=== PATIENT | female | born 1970 | race Caucasian/White ===

== ENCOUNTER 2019-01-27 06:00 | Outpatient (RCR) | payer SELFPAY | END 2019-02-26 00:01 | LOC: SPT 06:00 | PROVIDERS: Family Provider Family Medicine; Visit Provider Specialist | DX: M51.16 Intervertebral disc disorders with radiculopathy, lumbar region (principal) | CPT/HCPCS: 97110 ×4 ==

== ENCOUNTER 2019-02-27 13:17 | Outpatient (RCR) | payer MEDICAID, SELFPAY | END 2019-03-29 23:59 | disposition home or self-care (01) | LOC: SPT 13:17 | PROVIDERS: Family Provider Family Medicine; Visit Provider Specialist | DX: M51.16 Intervertebral disc disorders with radiculopathy, lumbar region (principal) ==

== ENCOUNTER 2021-11-15 10:51 | Outpatient (CLI) | payer MEDICAID, SELFPAY ==
--- NOTE | 2021-11-15 10:53 | MM_ITS ---
WS: [id number] BILATERAL SCREENING DIGITAL TOMOSYNTHESIS MAMMOGRAM WITH CAD HISTORY: SCREENING COMPARISON: 02/06/2019 and 2011 Bilateral CC and MLO views with tomosynthesis and synthetic mammography submitted. Computer aided det ection analyzed. Breast composition: There are scattered areas of fibroglandular density. No suspicious masses, microc alcifications or architectural distortion. MM/[place] [id number] IMPRESSION: BI-RADS: 1-Negative FOLLOW UP: 1 Year Follow-up
== END 2021-11-15 10:52 | disposition home or self-care (01) ==
LOC: RAD 10:52
PROVIDERS: PCP Family Medicine; Visit Provider Nurse Practitioner Family
DX: Z12.31 Encounter for screening mammogram for malignant neoplasm of breast (principal)
CPT/HCPCS: 77063; 77067

== ENCOUNTER 2022-02-25 16:49 | Emergency (ER) | payer MEDICAID, SELFPAY ==
--- NOTE | 2022-02-25 16:53 | ECG_ITS ---
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 Measurements Intervals [place] Rate: 78 P: 29 [place]: 168 QRS: 22 QRSD: 95 T: 34 QT: 374 QTc: 427 Interpretive Statements SINUS RHYTHM INCOMPLETE RIGHT BUNDLE BRANCH BLOCK [90+ ms QRS DURATION, TERMINAL R IN V1/V2, 40+ ms S IN I/aVL/V4/V5/V6] POSSIBLE ANTERIOR MYOCARDIAL INFARCTION , OF INDETERMINATE AGE [30 ms Q WAVE IN V3/V4, OR R < 0.2 mV IN V4] No previous ECG available for comparison Electronically Signed On 02-25-2022 18:48:34 EQUIPMENT COORDINATOR by Julienne Ann M.D. [id number]
[2022-02-25 16:54] VITALS: BP 144/90; PULSE 85; RESP 18; TEMP 36.3; O2SAT 97; BMI 29.6
[2022-02-25 18:00] VITALS: BP 120/78; PULSE 81; RESP 18; TEMP 36.6; O2SAT 96
--- NOTE | 2022-02-25 19:09 | XRR_ITS ---
PROCEDURE INFORMATION: Exam: XR Chest Exam date and time: 02/25/2022 7:11 PM Age: 51 years old Clinical indication: Angina; Patient HX: Irregular hb; Additional info: Cp TECHNIQUE: Imaging protocol: Radiologic exam of the chest. Views: 1 view. COMPARISON: CT kidney stone [id number] 11/15/2018 8:54 PM FINDINGS: Lungs: Unremarkable. No consolidation. Pleural spaces: Unremarkable. No pleural effusion. No pneumothorax. Heart/Mediastinum: Unremarkable. No cardiomegaly. Bones/joints: Unremarkable. XR/XR chest 1V portable [id number] IMPRESSION: Unremarkable
[2022-02-25 20:27] LABS: Basophils % 0.2 %; Eosinophils # 0.1 10^3/uL (0.0-0.8); Eosinophils % 0.8 %; Hematocrit 40.2 % (37.0-47.0); Hemoglobin 13.3 g/dL (11.5-15.3); Lymphocytes # 2.6 10^3/uL (0.8-4.8); Lymphocytes % 43.3 %; Mean Corpuscular HGB Conc 33.1 g/dL (30.0-36.0); Mean Corpuscular Hemoglobin 31.5 pg (28.0-34.0); Mean Corpuscular Volume 95.3 fl (81-99); Mean Platelet Volume 10.3 fL (7.4-10.4); Monocytes # 0.4 10^3/uL (0.2-0.9); Monocytes % 5.9 %; Neutrophils # 2.96 10^3/uL (1.8-7.7); Neutrophils % 49.6 %; Nucleated Red Blood Cells % 0 %; Platelet Count 203 10^3/cmm (130-400); Red Blood Count 4.22 10^6/uL (4.1-5.3); Red Cell Distribution Width 11.9 % (12.1-15.1)
[2022-02-25 20:43] LABS: Troponin(5th) Baseline 6 ng/L (0-10)
[2022-02-25 20:49] LABS: Alanine Aminotransferase 50 U/L (0-33); Albumin Level 4.6 g/dL (3.5-5.2); Alkaline Phosphatase 116 U/L (35-105); Anion Gap 12.9 (5-19); Aspartate Amino Transferase 23 U/L (0-32); Blood Urea Nitrogen 13 mg/dL (6-20); Calcium 10.1 mg/dL (8.5-10.5); Carbon Dioxide 29 mmol/L (22-29); Chloride 104 mmol/L (98-107); Globulin 2.1 g/dL (1.3-4.6); Glomerular Filtration Rate 88.6 mL/min (90-130); Glucose 94 mg/dL (65-115); Osmolality Calculated 294 mOsm/kg (285-295); Potassium 3.9 mmol/L (3.5-5.1); Sodium 142 mmol/L (136-145); Total Bilirubin 0.3 mg/dL (0.15-1.2); Total Protein 6.7 g/dL (6.6-8.7)
--- NOTE | 2022-02-25 22:05 | ECG_ITS ---
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 Measurements Intervals [place] Rate: 74 P: 14 UT: 164 QRS: -5 QRSD: 98 T: -10 QT: 393 QTc: 436 Interpretive Statements SINUS RHYTHM INCOMPLETE RIGHT BUNDLE BRANCH BLOCK [90+ ms QRS DURATION, TERMINAL R IN V1/V2, 40+ ms S IN I/aVL/V4/V5/V6] POSSIBLE ANTERIOR MYOCARDIAL INFARCTION , OF INDETERMINATE AGE [30 ms Q WAVE IN V3/V4, OR R < 0.2 mV IN V4] Compared to ECG 02/25/2022 17:09:13 No significant changes Electronically Signed On 02-26-2022 15:23:59 IT SENIOR SOFTWARE ENGINEER JAVA by Paulina Garcia M.D. [id number]
--- NOTE | 2022-02-25 22:48 | W.ED.ARRPALP ---
HPI - Arrhythmia/Palpitations General: Chief Complaint: Arrhythmia/Palpitations Stated Complaint: chest pain Time Seen by Provider: 02/25/22 22:32 History of Present Illness: Patient comes in with palpitations. States that she had some chest pain back around Thanksgiving a couple months ago and since then has been had off-and-on palpitations. States she is not having any symptoms at this time. Denies any significant medical history. Physical exam is unremarkable. EKG, and labs done here in the emergency department are unremarkable. Will place a request to case management to help patient get set up with a cardiac event monitor and send the results to her primary care provider. Associated symptoms: Deny anxiety, nausea or vomiting Review of Systems Const: Denies: fever(s) or body aches Eyes: Denies: change in vision or blurry vision ENMT: Denies: throat pain or odynophagia Card: Reports: palpitations; Denies: chest pain Resp: Denies: dyspnea or productive cough GI: Denies: abdominal pain, nausea or vomiting : Denies: flank pain or dysuria Musc: Denies: neck pain or back pain Skin/Breast: Denies: rash or pruritus Neuro: Denies: headache(s) or numbness in extremities Psych: Denies: anxiety or change in appetite Endo: Denies: polyuria or excessive sweating PFSH ED PFSH: Medical History (Updated 02/25/22 @ 22:48 by Scottie Prater MD) Intervertebral disc disorder with radiculopathy of lumbar region Spondylolisthesis of lumbar region Family History (Updated 04/03/19 @ 10:24 by Mere Holland LPN) Mother CAD (coronary artery disease) Diabetes Hypertension Social History (Updated 04/03/19 @ 10:25 by Mere Holland LPN) Smoking and tobacco status: never smoked Alcohol intake: current Lives independently: Yes Marital status: Current occupational status: employed 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 Physical Exam Const: COMMON NORMALS: no acute distress, patient oriented x3, healthy appearing and alert HENMT: COMMON NORMALS: normocephalic and atraumatic HEAD & SCALP: normocephalic and atraumatic Eye: COMMON NORMALS: Equal, round and reactive pupils present and EOMs intact bilaterally PUPIL: Yes Equal, round and reactive pupils present Neck/C-Spine: COMMON NORMALS: full ROM and supple Resp: COMMON NORMALS: normal respiratory effort, No retractions and No use of accessory muscles Cardio: COMMON NORMALS: regular rate and regular rhythm RATE: regular rate RHYTHM: regular rhythm GI: COMMON NORMALS: Normal to inspection, nondistended, normoactive bowel sounds present, Soft to palpation and non-tender PALPATION: Yes Soft to palpation Back/Pelvis: COMMON NORMALS: thoracic and lumbar spine normal to inspection and no thoracic nor lumbar tenderness Extremity: COMMON NORMALS: normal to inspection and full ROM Neuro: COMMON NORMALS: patient oriented x3 SENSORIUM/ORIENTATION: Yes alert Psych: COMMON NORMALS: mental status grossly normal and cooperative Skin: COMMON NORMALS: no rashes or lesions noted and no wounds GENERAL SKIN EXAM: no rashes or lesions noted Course Vital Signs: Vital signs: Vital Signs Temperature 97.9 F 02/25/22 18:00 Pulse Rate 81 02/25/22 18:00 Respiratory Rate 18 02/25/22 18:00 Blood Pressure 120/78 02/25/22 18:00 Pulse Oximetry 96 02/25/22 18:00 Oxygen Delivery Me thod 02/25/22 18:00 MDM - Arrhythmia/Palpitations Medical Decision Making Patient comes in with palpitations. States that [facility] and since then has been had off-and-on palpitations. States she is not having any symptoms at this time. Denies any significant medical history. Physical exam is unremarkable. EKG, and labs done here in the emergency department are unremarkable. Will place a request to case management to help patient get set up with a cardiac event monitor and send the results to her primary care provider. Will discharge home at this time with precautions return for worsening or changing symptoms. Lab Data 02/25/22 20:01 02/25/22 20:01 Radiology Impressions Chest X-Ray 02/25/22 19:09 IMPRESSION: Unremarkable Laboratory Results WBC 6.0 10^3/uL (4.0-10.0) 02/25/22 20:01 RBC 4.22 10^6/uL (4.1-5.3) 02/25/22 20:01 Hgb 13.3 g/dL (11.5-15.3) 02/25/22 20:01 Hct 40.2 % (37.0-47.0) 02/25/22 20:01 MCV 95.3 fl (81-99) 02/25/22 20:01 MCH 31.5 pg (28.0-34.0) 02/25/22 20:01 MCHC 33.1 g/dL (30.0-36.0) 02/25/22 20:01 RDW 11.9 % (12.1-15.1) L 02/25/22 20:01 Plt Count 203 10^3/cmm (130-400) 02/25/22 20:01 MPV 10.3 fL (7.4-10.4) 02/25/22 20:01 Neut % (Auto) 49.6 % 02/25/22 20:01 Lymph % (Auto) 43.3 % 02/25/22 20:01 Bullitt % (Auto) 5.9 % 02/25/22 20:01 Eos % (Auto) 0.8 % 02/25/22 20:01 Baso % (Auto) 0.2 % 02/25/22 20:01 Neut # (Auto) 2.96 10^3/uL (1.8-7.7) 02/25/22 20:01 Lymph # (Auto) 2.6 10^3/uL (0.8-4.8) 02/25/22 20:01 Bullitt # (Auto) 0.4 10^3/uL (0.2-0.9) 02/25/22 20:01 Eos # (Auto) 0.1 10^3/uL (0.0-0.8) 02/25/22 20:01 Baso # (Auto) 0.0 10^3/uL (0.0-0.1) 02/25/22 20:01 Nucleated RBC % (auto) 0 % 02/25/22 20:01 Nucleated RBCs # 0.0 /100WBC 02/25/22 20:01 Sodium 142 mmol/L (136-145) 02/25/22 20:01 Potassium 3.9 mmol/L (3.5-5.1) 02/25/22 20:01 Chloride 104 mmol/L (98-107) 02/25/22 20:01 Carbon Dioxide 29 mmol/L (22-29) 02/25/22 20:01 Anion Gap 12.9 (5-19) 02/25/22 20:01 BUN 13 mg/dL (6-20) 02/25/22 20:01 Creatinine 0.7 mg/dL (0.5-0.9) 02/25/22 20:01 GFR Calculation 88.6 mL/min (90-130) L 02/25/22 20:01 Glucose 94 mg/dL (65-115) 02/25/22 20:01 Calculated Osmolality 294 mOsm/kg (285-295) 02/25/22 20:01 Calcium 10.1 mg/dL (8.5-10.5) 02/25/22 20:01 Total Bilirubin 0.3 mg/dL (0.15-1.2) 02/25/22 20:01 AST 23 U/L (0-32) 02/25/22 20:01 ALT 50 U/L (0-33) H 02/25/22 20:01 Alkaline Phosphatase 116 U/L (35-105) H 02/25/22 20:01 Troponin T Baseline 6 ng/L (0-10) 02/25/22 20:01 Total Protein 6.7 g/dL (6.6-8.7) 02/25/22 20:01 Albumin 4.6 g/dL (3.5-5.2) 02/25/22 20:01 Globulin 2.1 g/dL (1.3-4.6) 02/25/22 20:01 Discharge Plan Discharge Patient Disposition: Home Clinical Impression: Palpitations Condition: Stable Prescriptions: No Action penicillin V potassium 500 mg tablet 500 mg PO QID Complete Multivitamin Tablet 1 tab PO DAILY ascorbic acid (vitamin C) 500 mg capsule 500 mg PO DAILY vitamin B complex [B Complex-Vitamin B12] Tablet 1 tab PO DAILY Discharge Orders: Discharge ED (Routine); Ordered 02/25/22 Ordered By: Scottie Prater Referrals: Elvie Chen, [facility] [Primary Care Provider] - Patient Instructions: Heart Palpitations Coding Level of Care Code ED Laboratory Operations Coordinator for Edin Cassidy
[2022-02-25 23:32] VITALS: BP 122/76; PULSE 79; RESP 17; TEMP 36.6; O2SAT 97
[2022-02-25 23:42] LABS: Troponin 5 2HR Delta 0 ABS# (0-10)
--- NOTE | 2022-02-28 14:06 | DCPLANNER ---
Addendum entered by Madalyn Ortiz 03/10/22 13:41: Patient had a follow up appointment scheduled at [facility] for an event monitor - patient did attend appointment. Addendum entered by Madalyn Ortiz 03/02/22 13:51: Patient has a follow up appointment scheduled for February at 1:00 at [facility] for an event monitor. Clinic will call patient with appointment information. Original Note: boarding house manager had message to schedule a follow up appointment for patient with [facility] for a event monitor. boarding house manager faxed signed order to heart care, who will call patient with appointment information.
== END 2022-02-25 23:34 | disposition home or self-care (01) ==
PROVIDERS: Emergency Medicine; Emergency Provider Emergency Medicine; PCP Nurse Practitioner Family
DX: R00.2 Palpitations (principal)
CPT/HCPCS: 36415; 71045; 80053; 84484; 85025; 93005; 99285

== ENCOUNTER 2022-11-07 11:03 | Outpatient (CLI) | payer MEDICAID, SELFPAY ==
--- NOTE | 2022-11-07 | ECG_ITS ---
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 Interpretive Statements NAME OF STUDY: TREADMILL STRESS TEST INDICATION: Dyspnea on Exertion Baseline blood pressure of 120/81 mm Hg, heart rate of 87 beats per minute and oxygen saturation 94%. EKG showed sinus rhythm, normal axis with incomplete right bundle branch block. T wave inversion V3 to V5. The patient exercised for 6 minutes on a [standard Mario protocol]. Patient attained a maximum heart rate of 157 beats per minute(92% of the maximum predicted heart rate) with a blood pressure at the peak exercise of 155/86mm Hg. The EKG at the peak exercise revealed sinus tachycardia with no significant ST-T wave changes. Patient did not have any chest pain or any significant arrhythmis with the exercise. The study was terminated due to maximal effort. During the recovery phase, there were no new changes. Blood pressure at the end of the recovery phase was [129/80] mm Hg with a heart rate of 97 beats per minute and oxygen saturation of 96%. CONCLUSION: 1. Normal EKG response to treadmill exercise. 2. No exercise-induced chest pain or cardiac arrhythmia. 3. Good exercise tolerance, attained a maximum of 7 METs. 4. Baseline normal blood pressure with normal response to exercise. Electronically Signed On 11-11-2022 19:36:52 CDT by Julienne Ann M.D. [id number]
--- NOTE | 2022-11-07 11:22 | USCV_ITS ---
Anali Helton Age: 52 Gender: F : 1970 Exam Date: 11/07/2022 11:32 Ordering Phys: Elvie Chen Technologist: [place] [facility] [place]: chest pain BP: 120 / 70 HR: 77 Rhythm: Sinus Technical Quality: Adequate MEASUREMENTS (Male / Female) Normal Values 2D ECHO LV Diastolic Diameter PLAX 4.3 cm 4.2 - 5.9 / 3.9 - 5.3 cm LV Systolic Diameter PLAX 2.8 cm IVS Diastolic Thickness 1.1 cm 0.6 - 1.0 / 0.6 - 0.9 cm IVS Systolic Thickness 2.0 cm LVPW Diastolic Thickness 1.0 cm 0.6 - 1.0 / 0.6 - 0.9 cm LVPW Systolic Thickness 0.9 cm LVOT Diameter 2.0 cm LV Ejection Fraction 2D Teich 64.7 % LV Ejection Fraction MOD 2C 75.0 % LV Ejection Fraction 2C AL 77.1 % LA Diameter 3.7 cm IVC Diameter 1.6 cm M-MODE Aortic Annulus Diameter 2.7 cm LA Ao Ratio MM 1.6 MV E Point Septal Separation 0.7 cm DOPPLER AV Peak Velocity 145.0 cm/s LVOT Peak Velocity 106.0 cm/s AV Area Cont Eq vti 2.4 cm squared AV Area Cont Eq pk 2.4 cm squared MV Area PHT 5.0 cm squared Mitral E to A Ratio 1.0 MV E' Velocity 41.5 cm/s Mitral E to MV E' Ratio 6.9 Mitral E to LV E' Lateral Ratio 7.7 Mitral E to LV E' Septal Ratio 6.3 TR Peak Velocity 156.0 cm/s TR Peak Gradient 9.7 mmHg TV Peak E Velocity 71.0 cm/s Right Atrial Pressure 3.0 mmHg Pulmonary Artery Systolic Pressu 12.7 mmHg FINDINGS Left Ventricle Left ventricle is normal in size. LV systolic function is normal with EF of 65 to 70%. No regional wall motion abnormalities seen. Right Ventricle Normal in size and function Right Atrium Normal in size Left Atrium Normal in size Mitral Valve Structurally normal mitral valve. Aortic Valve Structurally normal aortic valve. No significant stenosis or regurgitation. Tricuspid Valve Mild tricuspid regurgitation. Insufficient TR jet to calculate RVSP. Pulmonic Valve Not well visualized Pericardium Normal Aorta Normal in size IVC Appears to be normal CONCLUSIONS LV systolic function is normal with EF of 65 to 70%. Mild tricuspid regurgitation No comparison studies are available Raghu Jackson MD (Electronically Signed) Final Date: 07 November 2022 17:09 S
[2022-11-07 12:25] VITALS: BMI 30.4
[2022-11-07 12:55] VITALS: BP 129/80; PULSE 97
== END 2022-11-07 11:04 | disposition home or self-care (01) ==
LOC: RAD 11:49 → CDL 12:25
PROVIDERS: PCP Nurse Practitioner Family; Visit Provider Nurse Practitioner Family
DX: R60.9 Edema, unspecified (principal); R06.09 Other forms of dyspnea; I07.1 Rheumatic tricuspid insufficiency
CPT/HCPCS: 93017; 93306

== ENCOUNTER → 2024-10-20 11:29 | Outpatient (BNVA) | payer MEDICAID, SELFPAY | PROVIDERS: PCP Nurse Practitioner Family; Visit Provider Nurse Practitioner | DX: R39.9 Unspecified symptoms and signs involving the genitourinary system (principal) | CPT/HCPCS: 81000; 87086 ==

== ENCOUNTER 2024-10-30 07:44 | Outpatient (CLI) | payer MEDICAID, SELFPAY ==
--- NOTE | 2024-10-30 | MM_ITS ---
WS: [id number] BILATERAL SCREENING DIGITAL TOMOSYNTHESIS MAMMOGRAM WITH CAD HISTORY: ANNUAL SCREENING COMPARISON: 11/15/2021, 02/06/2019 Bilateral CC and MLO views with tomosynthesis and synthetic mammography submitted. Computer aided detection analyzed. Breast composition: There are scattered areas of fibroglandular density. No suspicious masses, microcalcifications or architectural distortion. Benign arterial calcifications in each breast. MM/MM scr BI tomosynthesis [id number] IMPRESSION: BI-RADS: 2 - Benign. FOLLOW UP: 1 Year Follow-up
== END 2024-10-30 07:45 | disposition home or self-care (01) ==
LOC: RAD 07:45
PROVIDERS: PCP Nurse Practitioner Family; Visit Provider Nurse Practitioner Family
DX: Z12.31 Encounter for screening mammogram for malignant neoplasm of breast (principal); R92.323 Mammographic fibroglandular density, bilateral breasts; R92.1 Mammographic calcification found on diagnostic imaging of breast
CPT/HCPCS: 77063; 77067